=== PATIENT | female | born 1960 | race Caucasian/White ===

== ENCOUNTER 2020-12-27 14:05 | Emergency (ER) | payer BC ==
[~2020-12-27] VITALS: Ht 165.1 cm; Wt 66.0 kg
--- NOTE | 2020-12-27 14:34 | EKG ---
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
[2020-12-27] MEDS ORDERED: IBUPROFEN 600 MG TABLET. PO ONE (15:00)
--- NOTE | 2020-12-27 15:13 | RAD ---
XR CHEST 2V History: Reason: LEFT ARM PAIN, CARDIAC WORKUP / Spl. Instructions: / History: Comparison: None. Findings: No consolidation or pleural effusion. Normal heart size. No pneumothorax. Impression: 1. No acute cardiopulmonary process. Electronically signed by: Angelo Whitfield DO (12/27/2020 3:10 PM) [facility]
--- NOTE | 2020-12-27 15:39 | PHYS DOC ---
Adult General Chief Complaint Chief Complaint: UPPER EXTREMITY PAIN HPI HPI Patient is a 60-year-old female presents emergency department with complaints of left arm pain stating she woke up this morning at 630 and felt her left arm aching. Patient states she slept in a different bed last night. Patient describes her left arm pain as achy throbbing just above the elbow. Patient states that she went to work and noticed her hand was feeling a little cold and tingly at approximately 10 AM and decided to come to the emergency department. Patient has not taken any medications nor tried any therapies for her left arm discomfort. Patient states she has noticed a significant decrease in discomfort since arriving to the ER. Patient states she no longer feels her hand is numb and tingly or cold. Patient states she has 0/10 pain on a 1-10 pain scale when her arm is still however when she flexes her left arm her pain level rises to a 5/10 pain. Patient denies any injury to her left arm. Patient denies any recent fever or chills, nasal congestion, chest congestion, cough, throat pain, visual disturbances, chest pain, palpitations, or shortness of breath. Patient denies any swelling to her extremities. Patient denies any abdominal pain, nausea, vomiting, or diarrhea. Patient states she only takes 112 mcg of le vothyroxine at home for hypothyroidism, has no known drug allergies, sees Dr. Rivera next week for a reevaluation of her thyroid and to obtain an extension of her prescriptions for levothyroxine. Patient states she is concerned about "silent heart attacks that women get "and is here in the ER for an evaluation (GYPSY CROCKETT APRN) Review of Systems Review of Systems 14 body systems of review of systems have been reviewed. See HPI for pertinent positives and negative responses, otherwise all other systems are negative, nonpertinent or noncontributory. (GYPSY CROCKETT APRN) Current Medications Current Medications Current Medications Medications (Trade) Dose Ordered Sig/Bernard Start Time Stop Time Status Last Admin Dose Admin Ibuprofen (Motrin) 600 mg 1X ONCE 12/27/20 15:00 12/27/20 15:01 DC (GYPSY CROCKETT APRN) Allergies Allergies Allergies Coded Allergies Type Severity Reaction Last Updated Verified No Known Drug Allergies 12/27/20 No (GYPSY CROCKETT APRN) Physical Exam Physical Exam Constitutional: Well developed, well nourished, no acute distress, non-toxic appearance. 60-year-old female in no apparent distress. HENT: Normocephalic, atraumatic, bilateral external ears normal, oropharynx moist, no oral exudates, nose normal. Oropharynx moist, no infectious process appreciated, no lymphadenopathy of the head or neck appreciated. Eyes: PERRLA, EOMI, conjunctiva normal, no discharge. Neck: Normal range of motion, no tenderness, supple, no stridor. No C-spine pain, no nuchal rigidity, no meningismus signs. Cardiovascular:Heart rate regular rhythm, heart sounds S1-S2 to auscultation. Lungs & Thorax: Bilateral breath sounds clear to auscultation all lung danielle, no adventitious lung sounds appreciated. Abdomen: Bowel sounds normal, soft, no tenderness, no masses, no pulsatile masses. Skin: Warm, dry, no erythema, no rash. Back: No tenderness to palpation along vertebral spinal column bony prominences or adjacent musculoskeletal structures of the back. Extremities: No tenderness, no cyanosis, no clubbing, ROM intact, no edema. Distal cap refill less than 2 seconds, +2/4 pulses, no decreased sensation. Left bicep muscle spasm during physical exam. No crepitus appreciated, no areas of ecchymosis appreciated, no swelling appreciated. No deformity appreciated. Neurologic: Alert and oriented X 3, normal motor function, normal sensory function, no focal deficits noted. Psychologic: Affect normal, judgement normal, mood normal. (GYPSY CROCKETT APRN) EKG EKG EKG performed at 1414 by house respiratory therapy staff, a normal sinus rhythm with a heart rate of 80 bpm without ectopy, NH interval 0.122, QTc interval 0.444, no acute STEMI, no ACS, no acute ischemia appreciated, EKG interpreted by ED attending physician Dr. Eaton. (GYPSY CROCKETT APRN) Radiology/Procedures Radiology/Procedures []PATIENT: DIANE CHAPARRO: [id number]#: [id number] : 1960 LOCATION: ER AGE: 60 SEX: F EXAM STATUS: REG ER ORD. PHYSICIAN: GYPSY CROCKETT APRN REASON: LEFT ARM PAIN, CARDIAC WORKUP PROCEDURE: CHEST PA & LATERAL XR CHEST 2V History: Reason: LEFT ARM PAIN, CARDIAC WORKUP / Spl. Instructions: / History: Comparison: None. Findings: No consolidation or pleural effusion. Normal heart size. No pneumothorax. Impression: 1. No acute cardiopulmonary process. Electronically signed by: Angelo Whitfield DO (12/27/2020 3:10 PM) [facility] DICTATED AND SIGNED BY: ANGELO WHITFIELD DO DATE: 12/27/20 1509 CC: GYPSY CROCKETT APRN; ROJAS LÓPEZ MD ~MTH0 0 (GYPSY CROCKETT APRN) Heart Score C/O Chest Pain: No HEART Score for Chest Pain: HEART Score for Chest Pain Response (Comments) Value History Slighlty/Non-Suspicious 0 ECG Normal 0 Age >45 - < 65 1 Risk Factors No Risk Factors 0 Troponin < Normal Limit 0 Total 1 Risk Factors: Risk Factors: DM, Current or recent (<one month) smoker, HTN, HLP, family history of CAD, obesity. Risk Scores: Risk Factors: DM, Current or recent (<one month) smoker, HTN, HLP, family history of CAD, obesity. (GYPSY CROCKETT APRN) Course & Med Decision Making Course & Med Decision Making Pertinent Labs and Imaging studies reviewed. (See chart for details) 60-year-old female, vital signs reviewed, presents emergency department concerning left arm pain since waking up this morning at 630. Patient is also worried of "silent heart attacks that women get ". Physical examination concerning for strain of left bicep. Unlikely a cardiorespiratory component to this presentation and physical exam, related to patient's chief complaint of worried about silent heart attacks, will perform cardiorespiratory work-up today in the ED. Will give patient 600 mg oral ibuprofen. Patient's HEART score equals 1. Cardiorespiratory work-up negative for concerning process. Discussed with patient this is most likely a bicep muscle strain, use RICE therapy. Octavio and ice pack applied by ED nursing staff to left upper extremity. Patient gave verbal understanding of discharge home instructions, RICE therapy, follow-up with PCP this week, return to ER precautions or concerns, patient discharged home without incident. (GYPSY CROCKETT APRN) Course & Med Decision Making I oversaw on the above date of service of this patient and discussed the care with the MIDDLEWARE ARCHITECT. I agree with the findings, plan of care, and disposition as documented. Electronically signed, Gregoria Eaton DO (GREGORIA EATON DO) Carolyn Disclaimer Carolyn Disclaimer This electronic medical record was generated, in whole or in part, using a voice recognition dictation system. (GYPSY CROCKETT APRN) Departure Departure: Impression: Primary Impression: Biceps strain Disposition: 01 DC HOME SELF CARE/HOMELESS Condition: GOOD Referrals: ROJAS LÓPEZ MD (PCP) Patient Instructions: Elastic Bandage and RICE, Muscle Strain Additional Instructions: Please use medication as prescribed, we have discussed RICE therapy, rest, ice, compression, elevation. Please follow-up with your primary care physician this week for reevaluation of your left arm pain, let him know we have drawn your TSH level, please return to the emergency department for worsening symptoms or other concerns. EMERGENCY DEPARTMENT GENERAL DISCHARGE INSTRUCTIONS Thank you for coming to [facility] (ED) today and trusting us with you care. We trust that you had a positivie experience in our Emergency Department. If you wish to speak to the department management, you may call the director at [phone]. YOUR FOLLOW UP INSTRUCTIONS ARE FOLLOWS: 1. Do you have a private Doctor? If you do not have a private doctor, please ask for a resource list of physicians or clinics that may be able to assist you with follow up care. 2. The Emergency Physician has interpreted your x-rays. The X-Ray specialist will also review them. If there is a change in the findings, you will be notified in 48 hours when at all possible. 3. A lab test or culture has been done, your results will be reviewed and you will be notified if you need a change in treatment. ADDITIONAL INSTRUCTIONS AND INFORMATION: 1. Your care today has been supervised by a physician who is specially trained in emergency care. Many problems require more than one evaluation for a complete diagnosis and treatment. We recommend that you schedule your follow up appointment as recommended to ensure complete treatment of you illness or injury. If you are unable to obtain follow up care and continue to have a problem, or if your condition worsens, we recommend that you return to the ED. 2. We are not able to safely determine your condition over the phone nor are we able to give sound medical advice over the phone. For these safety reasons, if you call for medical advice we will ask you to come to the ED for further evaluation. 3. If you have any questions regarding these discharge instructions please call the ED at [phone]. SAFETY INFORMATION: In the interest of safety, wellness, and injury prevention; we encourage you to wear your sealbelt, if you smoke; quite smoking, and we encourage family to use a protective helmet for bicycling and other sporting events that present an increased risk for head injury. IF YOUR SYMPTOMS WORSEN OR NEW SYMPTOMS DEVELOP, OR YOU HAVE CONCERNS ABOUT YOUR CONDITION; OR IF YOUR CONDITION WORSENS WHILE YOU ARE WAITING FOR YOUR FOLLOW UP APPOINTMENT; EITHER CONTACT YOUR PRIMARY CARE DOCTOR, THE PHYSICIAN WHOSE NAME AND NUMBER YOU WERE GIVEN, OR RETURN TO THE ED IMMEDIATELY. Scripts Ibuprofen (IBUPROFEN) 600 Mg Tablet 600 MG PO TID PRN PRN for PAIN, #20 TAB 0 Refills Prov: GYPSY CROCKETT APRN 12/27/20 Problem Qualifiers Primary Impression: Biceps strain Encounter type: initial encounter Laterality: left Qualified Codes: S46.212A - Strain of muscle, fascia and tendon of other parts of biceps, left arm, initial encounter GYPSY CROCKETT APRN Dec 27, 2020 15:39 GREGORIA EATON DO Dec 28, 2020 06:31
[2020-12-27 15:46] LABS: BASO % 1 % (0-3); EOS # 0.1 x10^3/uL (0.0-0.7); EOS % 1 % (0-3); HEMATOCRIT 40.3 % (36.0-47.0); HEMOGLOBIN 13.3 g/dL (12.0-15.5); LYMPH # 1.5 x10^3/uL (1.0-4.8); LYMPH % 27 % (24-48); MEAN CORPUSCULAR HEMOGLOBIN 30 pg (25-35); MEAN CORPUSCULAR HGB CONC 33 g/dL (31-37); MEAN CORPUSCULAR VOLUME 92 fL (79-100); MONO # 0.5 x10^3/uL (0.0-1.1); MONO % 9 % (0-9); NEUT # 3.3 x10^3uL (1.8-7.7); NEUT % 62 % (31-73); PLATELET COUNT 273 x10^3/uL (140-400); RED BLOOD COUNT 4.37 x10^6/uL (3.50-5.40); RED CELL DISTRIBUTION WIDTH 14.2 % (11.5-14.5); WHITE BLOOD COUNT 5.4 x10^3/uL (4.0-11.0)
[2020-12-27 15:59] LABS: CALCIUM 9.4 mg/dL (8.5-10.1); CREATININE 0.8 mg/dL (0.6-1.0); GFR 73.4; POTASSIUM 4.2 mmol/L (3.5-5.1)
[2020-12-27 16:03] LABS: ALBUMIN 3.8 g/dL (3.4-5.0); ALBUMIN/GLOBULIN RATIO 1.2 (1.0-1.7); MAGNESIUM 2.2 mg/dL (1.8-2.4); PHOSPHORUS 3.7 mg/dL (2.6-4.7); TOTAL BILIRUBIN 0.3 mg/dL (0.2-1.0); TOTAL PROTEIN 6.9 g/dL (6.4-8.2)
[2020-12-27 16:20] VITALS: BP 120/62
[2020-12-27] MEDS ORDERED: IBUP600T16 PO (16:20)
== END 2020-12-27 16:25 | disposition home or self-care (01) ==
LOC: ER 14:05
DX: S46.212A Strain of muscle, fascia and tendon of other parts of biceps, left arm, initial encounter (principal); X50.9XXA Other and unspecified overexertion or strenuous movements or postures, initial encounter; Y93.89 Activity, other specified; Y92.89 Other specified places as the place of occurrence of the external cause; Y99.8 Other external cause status
CPT/HCPCS: 36415; 71046; 80053; 83735; 84100; 84443; 84484; 85025; 93005; 99285

== ENCOUNTER → 2021-07-30 | Outpatient (CLI) | payer BC ==
[~2021-07-30] MED LIST: IBUP600T16 PO
--- NOTE | 2021-07-31 18:36 | RAD ---
Bilateral digital screening mammogram: Reason for examination: Routine screening. There are no prior studies for comparison. This is a baseline exam. Interpretation was made with the benefit of CAD. Findings: Breast density: Category D. The breasts are extremely dense which lowers sensitivity of mammography.. There are no suspicious dominant masses, malignant appearing calcifications or architectural distorti ons. There are scattered diffuse punctate calcifications. Impression: No evidence of malignancy. Study is limited due to extremely dense breasts. In the future, 3-D mammog shama would be helpful. Assessment: BI-RADS Category 1: Negative. Recommendation: Routine screening 3-D mammograms. This patient's information has been entered into a reminder system for the patient to be notified wit h the results of her examination and a target date for the next mammogram. Electronically signed by: Hailey Godwin MD (07/31/2021 6:33 PM) [id number]
== END ==
LOC: MAMMO 15:41
PROVIDERS: ATTEND Family Medicine
DX: Z12.31 Encounter for screening mammogram for malignant neoplasm of breast (principal)
CPT/HCPCS: 77067